=== PATIENT | male | born 1985 | race Caucasian/White ===

== ENCOUNTER 2019-11-05 21:42 | Emergency (ER) | payer OTHER ==
[~2019-11-05] VITALS: Ht 182.9 cm; Wt 99.8 kg
[~2019-11-05 21:42] MED LIST: AMOX1XR PO; Acular3 ML RIGHTEYE; CYCL10 PO; DOCU100 PO; ERYT.5TO RIGHTEYE; HYDACE10B PO; HYDACE5 PO; IBUP800 PO; LIDO2L TOP; NAPR500; NAPR500 PO; NAPR550 PO; NITR2TO30 TOP; OMEP20ER PO; OXYACE5T PO; PRED20 PO; RXCYCL10 PO; RXNAPNA550 PO; SUCR1 PO
[2019-11-05 22:16] LABS: BASOPHILS ABSOLUTE AUTO 0.04 K/mm3 (0.00-0.23); BASOPHILS PERCENT AUTO 0 % (0-2); EOSINOPHILS PERCENT AUTO 0 % (0-6); Hematocrit 50.4 % (37.0-53.0); Hemoglobin 17.6 g/dL (13.5-17.5); IMMATURE GRAN ABSOLUTE AUTO 0.07 K/mm3 (0.00-0.10); IMMATURE GRAN PERCENT AUTO 0 % (0-1); LYMPHOCYTES ABSOLUTE AUTO 0.83 K/mm3 (0.84-5.20); LYMPHOCYTES PERCENT AUTO 4 % (21-46); MONOCYTES ABSOLUTE AUTO 0.38 K/mm3 (0.16-1.47); MONOCYTES PERCENT AUTO 2 % (4-13); Mean Corpuscular HGB 30.8 pg (26.0-34.0); Mean Corpuscular HGB Conc 34.9 g/dL (31.5-36.5); Mean Corpuscular Volume 88 fL (80-100); Mean Platelet Volume 11.4 fL (9.1-12.4); NEUTROPHILS ABSOLUTE AUTO 19.64 K/mm3 (1.96-9.15); NEUTROPHILS PERCENT AUTO 94 % (41-73); Platelet Count 238 K/mm3 (150-400); RDW Coefficient Variation 12.3 % (11.7-14.2); RDW Standard Deviation 40.1 fL (35.1-46.3); Red Blood Cell Count 5.71 M/mm3 (4.30-5.90); White Blood Cell Count 20.96 K/mm3 (4.00-11.30)
[2019-11-05 22:36] LABS: Alanine Aminotransfer (ALT/SGP 37 U/L (12-78); Albumin, Blood 4.3 g/dL (3.4-5.0); Albumin/Globulin Ratio 1.1 (0.8-1.8); Alk Phos 71 U/L (50-136); Anion Gap 10 mmol/L (6-16); Aspartate Aminotrans (AST/SGOT 25 U/L (12-37); Bilirubin, Total 0.7 mg/dL (0.1-1.0); Blood Urea Nitrogen 14 mg/dL (8-24); Bun/Creatinine Ratio 18.3 (12.0-20.0); CO2, Blood 21 mmol/L (21-32); Calcium, Blood 9.2 mg/dL (8.5-10.1); Chloride, Blood 109 mmol/L (98-108); Creatinine, Blood 0.77 mg/dL (0.60-1.20); Globulin, Blood 3.8 g/dL (2.2-4.0); Glomerular Filtration Rate >60 (60-); Glucose, Blood 139 mg/dL (70-99); Potassium, Blood 4.1 mmol/L (3.5-5.5); Sodium, Blood 140 mmol/L (136-145); Total Protein, Blood 8.1 g/dL (6.4-8.2)
[2019-11-06 01:41] LABS: Source, Urine Clean Catch
[2019-11-06 01:44] LABS: Appearance, Urine Clear (Clear); Bilirubin, Urine Neg (Neg); Blood, Urine 2+ (Neg); Color, Urine Amber (P-Yellow); Glucose Qualitative, Urine 1+ (Neg); Ketones, Urine 2+ (Neg); Leukocyte Esterase, Urine Neg (Neg); Nitrite, Urine Neg (Neg); Protein, Urine 2+ (Neg); Specific Gravity, Urine 1.025 (1.003-1.022); Urobilinogen, Urine NORM (Normal)
[2019-11-06 01:49] LABS: Squamous Epithelial Cells Rare /hpf (Few); White Blood Cells, Urine 0-2 /hpf (0-5)
[2019-11-06 01:50] LABS: Bacteria Mod /hpf; Mucus Heavy (0-Heavy)
[2019-11-06] MEDS ORDERED: Zofran4 MG PO (01:57)
== END 2019-11-06 03:01 | disposition home or self-care (01) ==
LOC: ER 21:42
PROVIDERS: Emergency Medicine
DX: N39.0 Urinary tract infection, site not specified (principal)
CPT/HCPCS: 36415; 74176; 80053; 81001; 83690; 85025; 87086; 96361; 96374; 96375; 99285-25; J2405; J3010; J7030

== ENCOUNTER 2022-12-02 16:17 | Emergency (ER) | payer OTHER ==
[~2022-12-02] VITALS: Ht 182.9 cm; Wt 101.2 kg
[~2022-12-02 16:17] MED LIST changes: +Zofran4 MG PO
[2022-12-02 17:11] LABS: BASOPHILS ABSOLUTE AUTO 0.06 K/mm3 (0.00-0.23); BASOPHILS PERCENT AUTO 1 % (0-2); EOSINOPHILS ABSOLUTE AUTO 0.07 K/mm3 (0.00-0.68); EOSINOPHILS PERCENT AUTO 1 % (0-6); Hematocrit 43.8 % (37.0-53.0); Hemoglobin 15.9 g/dL (13.5-17.5); IMMATURE GRAN ABSOLUTE AUTO 0.02 K/mm3 (0.00-0.10); IMMATURE GRAN PERCENT AUTO 0 % (0-1); LYMPHOCYTES ABSOLUTE AUTO 2.67 K/mm3 (0.84-5.20); LYMPHOCYTES PERCENT AUTO 31 % (21-46); MONOCYTES ABSOLUTE AUTO 0.72 K/mm3 (0.16-1.47); MONOCYTES PERCENT AUTO 8 % (4-13); Mean Corpuscular HGB 31.9 pg (26.0-34.0); Mean Corpuscular HGB Conc 36.3 g/dL (31.5-36.5); Mean Corpuscular Volume 88 fL (80-100); Mean Platelet Volume 10.6 fL (9.1-12.4); NEUTROPHILS ABSOLUTE AUTO 5.02 K/mm3 (1.96-9.15); NEUTROPHILS PERCENT AUTO 59 % (41-73); Platelet Count 231 K/mm3 (150-400); RDW Coefficient Variation 12.2 % (11.7-14.2); RDW Standard Deviation 39.2 fL (35.1-46.3); Red Blood Cell Count 4.98 M/mm3 (4.30-5.90); White Blood Cell Count 8.56 K/mm3 (4.00-11.30)
[2022-12-02 17:38] LABS: Albumin, Blood 4.3 g/dL (3.4-5.0); Albumin/Globulin Ratio 1.3 (0.8-1.8); Bilirubin, Total 0.4 mg/dL (0.1-1.0); Bun/Creatinine Ratio 14.2 (12.0-20.0); Calcium, Blood 8.7 mg/dL (8.5-10.1); Creatinine, Blood 0.85 mg/dL (0.60-1.20); Globulin, Blood 3.3 g/dL (2.2-4.0); Potassium, Blood 3.6 mmol/L (3.5-5.5); Total Protein, Blood 7.6 g/dL (6.4-8.2)
[2022-12-02] MEDS ORDERED: LOSA50 PO (19:01)
[2022-12-02] MEDS ORDERED: AMLO10 PO (19:01)
[2022-12-02] MEDS ORDERED: ROSU5 PO (19:02)
[2022-12-02] MEDS ORDERED: CLOP75 PO (19:02)
[2022-12-02 19:45] VITALS: BP 111/66
== END 2022-12-02 20:58 | disposition home or self-care (01) ==
LOC: ER 16:17
PROVIDERS: Physician Assistant
DX: G93.9 Disorder of brain, unspecified (principal); R94.39 Abnormal result of other cardiovascular function study; R09.89 Other specified symptoms and signs involving the circulatory and respiratory systems; F17.200 Nicotine dependence, unspecified, uncomplicated; Z79.02 Long term (current) use of antithrombotics/antiplatelets
CPT/HCPCS: 71046; 80053; 84484; 85025; 85379; 93005; 93010; 99284-25

== ENCOUNTER 2022-12-20 05:32 | Day surgery (SDC) | payer OTHER ==
[~2022-12-20] VITALS: Ht 177.8 cm; Wt 100.0 kg
[~2022-12-20 05:32] MED LIST changes: +AMLO10 PO; +CLOP75 PO; +LOSA50 PO; +ROSU5 PO
[2022-12-20] MEDS ORDERED: ASPI325 PO (06:22)
[2022-12-20 06:45] VITALS: BP 147/74
[2022-12-20 07:00] VITALS: BP 161/94
[2022-12-20 07:12] VITALS: BP 149/75
[2022-12-20 07:15] VITALS: BP 134/77
[2022-12-20 07:21] VITALS: BP 138/82
[2022-12-20 07:27] VITALS: BP 114/97
== END 2022-12-20 22:39 | disposition home or self-care (01) ==
LOC: MHTC 05:32
DX: I47.20 Ventricular tachycardia, unspecified (principal); I10 Essential (primary) hypertension; Z87.891 Personal history of nicotine dependence; I49.5 Sick sinus syndrome; E78.5 Hyperlipidemia, unspecified; E66.9 Obesity, unspecified; Z68.31 Body mass index [BMI] 31.0-31.9, adult
CPT/HCPCS: 93312; 93325; A9270; J2001; J2250; J2704; J7030

== ENCOUNTER 2023-03-09 08:57 | Day surgery (SDC) | payer OTHER ==
[~2023-03-09 08:57] MED LIST changes: +ASPI325 PO
[2023-03-09 09:22] VITALS: BP 120/72
--- NOTE | 2023-03-09 10:21 | NUR ---
PT TOLERATED LOOP IMPLANT WELL. LOOP IMPLANT SITE SOFT NON-TENDER WITH NO HEMATOMA, NO BLEEDING AND INTACT DRESSING/DEONNA PATCH. LOOP IMPLANT SITE WAS CLOSED WITH SUTURES.
[2023-03-09 10:25] VITALS: BP 123/79
--- NOTE | 2023-03-09 10:32 | NUR ---
PT AMBULATED OUT.
== END 2023-03-09 22:49 | disposition home or self-care (01) ==
LOC: MHTC 08:57
DX: R55 Syncope and collapse (principal); I10 Essential (primary) hypertension; E78.5 Hyperlipidemia, unspecified; K21.9 Gastro-esophageal reflux disease without esophagitis; G56.00 Carpal tunnel syndrome, unspecified upper limb; E66.9 Obesity, unspecified; Z68.31 Body mass index [BMI] 31.0-31.9, adult; Z87.891 Personal history of nicotine dependence
CPT/HCPCS: 33285; C1764; J0690; J7050

== ENCOUNTER 2023-05-03 06:26 | Day surgery (SDC) | payer OTHER ==
[~2023-05-03] VITALS: Ht 182.9 cm; Wt 105.0 kg
[2023-05-03] VITALS (12 sets, daily range): BP systolic 115–149; BP diastolic 56–107
--- NOTE | 2023-05-03 10:14 | NUR ---
PT RETURNED TO RECOVERY ROOM IN RECLINER. LACW SITE STABLE WITH PRESSURE DRESSING IN PLACE WELL RIGHT ARM SLING AND ICE BAG OVER DPPM SITE. PT'S FAMILY IN ROOM. CALL LIGHT IN REACH. PT EATING BREAKFAST. PT DENIES CHEST PAIN. PT HAS SORENESS IN TOPS OF BILAT SHOULDERS FROM LAYING ON TABLE.
--- NOTE | 2023-05-03 10:49 | NUR ---
NO CHANGES TO LACW SITE.
--- NOTE | 2023-05-03 12:27 | NUR ---
NO CHANGES TO LACW SITE.
--- NOTE | 2023-05-03 13:43 | NUR ---
NO CHANGES TO LACW SITE.
--- NOTE | 2023-05-03 16:41 | NUR ---
DISCHARGE INSTRUCTION REVIEWED ALL QUESTIONS ANSWERED. PRESSURE DRESSING REMOVED FROM LACW DPPM SITE. DPPM SITE SOFT WITH NO HEMATOMA, NO BLEEDING AND INTACT DRESSING. 20 G IV DISCONTINUED FROM LEFT AC WITH INTACT CANNULA. PT ESCORTED OUT VIA WHEELCHAIR ESCORT.
== END 2023-05-03 16:30 | disposition home or self-care (01) ==
LOC: MHTC 06:26
DX: I49.5 Sick sinus syndrome (principal); R55 Syncope and collapse; I10 Essential (primary) hypertension; E78.5 Hyperlipidemia, unspecified; E66.9 Obesity, unspecified; I45.5 Other specified heart block; I47.29 Other ventricular tachycardia; K21.9 Gastro-esophageal reflux disease without esophagitis; Z79.899 Other long term (current) drug therapy; G56.00 Carpal tunnel syndrome, unspecified upper limb; Z87.891 Personal history of nicotine dependence; Z68.31 Body mass index [BMI] 31.0-31.9, adult
CPT/HCPCS: 33208; 71046; 76937; 99152; 99153; C1785; C1894; C1898; J0690; J1644; J2250; J3010; J7030; J7040

== ENCOUNTER 2024-03-15 11:30 | Emergency (ER) | payer OTHER ==
[~2024-03-15] VITALS: Ht 182.9 cm; Wt 108.9 kg
[2024-03-15 11:32] VITALS: BP 151/102
[2024-03-15] MEDS ORDERED: CLIN300 PO (11:35)
== END 2024-03-15 11:36 | disposition home or self-care (01) ==
LOC: ER 11:30
DX: K04.7 Periapical abscess without sinus (principal); K21.9 Gastro-esophageal reflux disease without esophagitis; I10 Essential (primary) hypertension; E78.5 Hyperlipidemia, unspecified; F17.210 Nicotine dependence, cigarettes, uncomplicated; Z79.02 Long term (current) use of antithrombotics/antiplatelets; Z79.82 Long term (current) use of aspirin; Z79.899 Other long term (current) drug therapy
CPT/HCPCS: 99282

== ENCOUNTER → 2024-03-17 | Outpatient (CLI) | payer OTHER ==
[~2024-03-17] MED LIST changes: +Amoxicillin500 MG PO; +CLIN300 PO; +CO Q10100 MG PO; +MAG GLYCINATE100 MG PO; -ROSU5 PO; +ROSUVASTATIN CA20 MG PO
[2024-03-17 10:27] LABS: BASOPHILS ABSOLUTE AUTO 0.02 K/mm3 (0.00-0.23); BASOPHILS PERCENT AUTO 0 % (0-2); EOSINOPHILS PERCENT AUTO 0 % (0-6); Hemoglobin 14.3 g/dL (13.5-17.5); IMMATURE GRAN ABSOLUTE AUTO 0.07 K/mm3 (0.00-0.10); IMMATURE GRAN PERCENT AUTO 0 % (0-1); LYMPHOCYTES ABSOLUTE AUTO 2.56 K/mm3 (0.84-5.20); LYMPHOCYTES PERCENT AUTO 14 % (21-46); MONOCYTES ABSOLUTE AUTO 1.43 K/mm3 (0.16-1.47); MONOCYTES PERCENT AUTO 8 % (4-13); Mean Corpuscular HGB 31.7 pg (26.0-34.0); Mean Corpuscular HGB Conc 35.8 g/dL (31.5-36.5); Mean Corpuscular Volume 89 fL (80-100); Mean Platelet Volume 11.1 fL (9.1-12.4); NEUTROPHILS ABSOLUTE AUTO 14.58 K/mm3 (1.96-9.15); NEUTROPHILS PERCENT AUTO 78 % (41-73); Platelet Count 241 K/mm3 (150-400); RDW Coefficient Variation 12.2 % (11.7-14.2); RDW Standard Deviation 39.4 fL (35.1-46.3); Red Blood Cell Count 4.51 M/mm3 (4.30-5.90); White Blood Cell Count 18.66 K/mm3 (4.00-11.30)
[2024-03-17 10:29] LABS: Bun/Creatinine Ratio 25.2 (12.0-20.0); Creatinine, Blood 1.03 mg/dL (0.60-1.20); Potassium, Blood 3.9 mmol/L (3.5-5.5)
== END | disposition home or self-care (01) ==
LOC: LAB 10:22 → LAB SHORT 10:22
PROVIDERS: Physician Assistant
DX: K04.7 Periapical abscess without sinus (principal)
CPT/HCPCS: 80048; 85025

== ENCOUNTER → 2024-03-18 | Outpatient (CLI) | payer OTHER ==
[2024-03-18 11:52] LABS: BASOPHILS ABSOLUTE AUTO 0.02 K/mm3 (0.00-0.23); BASOPHILS PERCENT AUTO 0 % (0-2); EOSINOPHILS ABSOLUTE AUTO 0.01 K/mm3 (0.00-0.68); EOSINOPHILS PERCENT AUTO 0 % (0-6); Hematocrit 38.8 % (37.0-53.0); Hemoglobin 13.6 g/dL (13.5-17.5); IMMATURE GRAN ABSOLUTE AUTO 0.07 K/mm3 (0.00-0.10); IMMATURE GRAN PERCENT AUTO 0 % (0-1); LYMPHOCYTES ABSOLUTE AUTO 3.67 K/mm3 (0.84-5.20); LYMPHOCYTES PERCENT AUTO 21 % (21-46); MONOCYTES ABSOLUTE AUTO 1.16 K/mm3 (0.16-1.47); MONOCYTES PERCENT AUTO 7 % (4-13); Mean Corpuscular HGB 31.3 pg (26.0-34.0); Mean Corpuscular HGB Conc 35.1 g/dL (31.5-36.5); Mean Corpuscular Volume 89 fL (80-100); Mean Platelet Volume 10.8 fL (9.1-12.4); NEUTROPHILS ABSOLUTE AUTO 12.57 K/mm3 (1.96-9.15); NEUTROPHILS PERCENT AUTO 72 % (41-73); Platelet Count 265 K/mm3 (150-400); RDW Coefficient Variation 12.1 % (11.7-14.2); RDW Standard Deviation 39.5 fL (35.1-46.3); Red Blood Cell Count 4.34 M/mm3 (4.30-5.90)
[2024-03-18 11:56] LABS: Bun/Creatinine Ratio 25.4 (12.0-20.0); Calcium, Blood 8.6 mg/dL (8.5-10.1); Creatinine, Blood 1.14 mg/dL (0.60-1.20); Potassium, Blood 3.5 mmol/L (3.5-5.5)
== END ==
LOC: LAB 11:48 → LAB SHORT 11:48
PROVIDERS: Physician Assistant
DX: K04.7 Periapical abscess without sinus (principal)
CPT/HCPCS: 80048; 85025

== ENCOUNTER 2024-03-20 09:16 | Inpatient (IN) | payer OTHER ==
[~2024-03-20] VITALS: Ht 182.9 cm; Wt 98.9 kg
[~2024-03-20 09:16] MED LIST changes: -Amoxicillin500 MG PO; -CO Q10100 MG PO; -MAG GLYCINATE100 MG PO
[2024-03-20 10:28] LABS: BASOPHILS ABSOLUTE AUTO 0.02 K/mm3 (0.00-0.23); BASOPHILS PERCENT AUTO 0 % (0-2); EOSINOPHILS ABSOLUTE AUTO 0.03 K/mm3 (0.00-0.68); EOSINOPHILS PERCENT AUTO 0 % (0-6); Hematocrit 46.1 % (37.0-53.0); Hemoglobin 16.3 g/dL (13.5-17.5); IMMATURE GRAN ABSOLUTE AUTO 0.08 K/mm3 (0.00-0.10); IMMATURE GRAN PERCENT AUTO 1 % (0-1); LYMPHOCYTES PERCENT AUTO 20 % (21-46); MONOCYTES ABSOLUTE AUTO 1.14 K/mm3 (0.16-1.47); MONOCYTES PERCENT AUTO 7 % (4-13); Mean Corpuscular HGB 31.5 pg (26.0-34.0); Mean Corpuscular HGB Conc 35.4 g/dL (31.5-36.5); Mean Corpuscular Volume 89 fL (80-100); Mean Platelet Volume 10.6 fL (9.1-12.4); NEUTROPHILS ABSOLUTE AUTO 11.47 K/mm3 (1.96-9.15); NEUTROPHILS PERCENT AUTO 72 % (41-73); Platelet Count 295 K/mm3 (150-400); RDW Coefficient Variation 11.9 % (11.7-14.2); RDW Standard Deviation 38.7 fL (35.1-46.3); Red Blood Cell Count 5.17 M/mm3 (4.30-5.90); White Blood Cell Count 15.84 K/mm3 (4.00-11.30)
[2024-03-20] MEDS ORDERED: Morphine Sulfate 4 MG/1 ML Injection IV ONE ×2 (10:30→12:40)
[2024-03-20] MEDS ORDERED: Ondansetron HCl 2 MG / ML 2ML Vial IV ONE (10:30)
[2024-03-20] MEDS ORDERED: Piperacillin/Tazobactam Sod 3.375 GM in NS 100 ML IV ONE (10:35)
[2024-03-20 10:40] LABS: Albumin, Blood 3.9 g/dL (3.4-5.0); Bilirubin, Total 0.7 mg/dL (0.1-1.0); Calcium, Blood 9.4 mg/dL (8.5-10.1); Creatinine, Blood 0.89 mg/dL (0.60-1.20); Globulin, Blood 3.8 g/dL (2.2-4.0); Potassium, Blood 3.7 mmol/L (3.5-5.5); Total Protein, Blood 7.7 g/dL (6.4-8.2)
[2024-03-20] MEDS ORDERED: NS 1,000 ML IV SCH (10:40)
[2024-03-20] MEDS ORDERED: FLU VACC TS2024-25(6MOS UP)/PF 45 MCG/0.5 ML SYRINGE IM SCH (13:05)
[2024-03-20] MEDS ORDERED: Morphine Sulfate 4 MG/1 ML Injection IV PRN (13:05)
[2024-03-20] MEDS ORDERED: FentaNYL Citrate 50 MCG/ML 2 ML Injection IV ONE (13:10)
[2024-03-20] MEDS ORDERED: Dexamethasone Sod Phos 10 MG/ML 1ML VIAL IV ONE (13:20)
[2024-03-20 15:22] VITALS: BP 153/92
[2024-03-20] MEDS ORDERED: CO Q10100 MG PO (15:35)
[2024-03-20] MEDS ORDERED: NS 250 ML IV PRN (16:10)
--- NOTE | 2024-03-20 17:07 | NUR ---
ADMIT/SHIFT SUMMARY: PT ADMITTED TO FLOOR FROM ER @ 1517 VIA WHEELCHAIR. PT INDEPENDENT IN ROOM. PT STATES ABCESS DRAINED IN ER. CONTINUES TO HAVE 6/10 PAIN BUT DENIES PAIN MEDICATION AT THIS TIME. NO SKIN ISSUES. HTN NOTED. DR. NICHOLSON ARRIVED TO ROOM SHORTLY AFTER PT ARRIVAL. STATED OKAY TO HAVE ICE WATER BUT NPO OTHERWISE. CALL LIGHT IN REACH. BED IN LOWEST POSITION. IV ABX INFUSING.
[2024-03-20] MEDS ORDERED: Piperacillin/Tazobactam Sod 4.5 GM in NS 100 ML IV SCH (18:00)
[2024-03-20 19:19] VITALS: BP 147/85
--- NOTE | 2024-03-21 02:51 | NUR ---
2330 PATIENT HAS BEEN RESTING IN ROOM. HE IS VERY DIAPHORETIC, TOTAL BED LINEN CHANGE. PT WAS MEDICATED WITH FOR RT JAW PAIN WITH MORPHINE 2 MG. TAKING FLUIDS.
[2024-03-21 04:42] VITALS: BP 150/85
[2024-03-21 04:50] LABS: BASOPHILS ABSOLUTE AUTO 0.03 K/mm3 (0.00-0.23); BASOPHILS PERCENT AUTO 0 % (0-2); EOSINOPHILS PERCENT AUTO 0 % (0-6); Hematocrit 41.7 % (37.0-53.0); Hemoglobin 14.7 g/dL (13.5-17.5); IMMATURE GRAN ABSOLUTE AUTO 0.07 K/mm3 (0.00-0.10); IMMATURE GRAN PERCENT AUTO 1 % (0-1); LYMPHOCYTES ABSOLUTE AUTO 2.09 K/mm3 (0.84-5.20); LYMPHOCYTES PERCENT AUTO 14 % (21-46); MONOCYTES ABSOLUTE AUTO 0.76 K/mm3 (0.16-1.47); MONOCYTES PERCENT AUTO 5 % (4-13); Mean Corpuscular HGB 31.7 pg (26.0-34.0); Mean Corpuscular HGB Conc 35.3 g/dL (31.5-36.5); Mean Corpuscular Volume 90 fL (80-100); Mean Platelet Volume 10.3 fL (9.1-12.4); NEUTROPHILS ABSOLUTE AUTO 11.96 K/mm3 (1.96-9.15); NEUTROPHILS PERCENT AUTO 80 % (41-73); Platelet Count 273 K/mm3 (150-400); RDW Coefficient Variation 11.8 % (11.7-14.2); RDW Standard Deviation 38.7 fL (35.1-46.3); Red Blood Cell Count 4.63 M/mm3 (4.30-5.90); White Blood Cell Count 14.91 K/mm3 (4.00-11.30)
[2024-03-21 05:09] LABS: Bun/Creatinine Ratio 19.4 (12.0-20.0); Creatinine, Blood 0.93 mg/dL (0.60-1.20); Potassium, Blood 4.6 mmol/L (3.5-5.5)
--- NOTE | 2024-03-21 06:36 | NUR ---
Rn shift summary: Patient is alert and oriented. Pt has rested well. Denies need for pain med this am. IV ABX as ordered. Remains independant in room. Call light in reach.
[2024-03-21 07:55] VITALS: BP 134/84
[2024-03-21] MEDS ORDERED: Clopidogrel Bisulfate 75 MG Tab PO SCH (09:00)
[2024-03-21] MEDS ORDERED: AmLODIPine Besylate 5 MG Tab PO SCH ×2 (09:00→21:00)
[2024-03-21] MEDS ORDERED: Losartan Potassium 50 MG Tab PO SCH (09:00)
[2024-03-21] MEDS ORDERED: Heparin Sodium,Porcine 5,000 UNIT/0.5 ML SDV SC SCH (09:00)
[2024-03-21] MEDS ORDERED: Rosuvastatin Calcium 10 MG Tab PO SCH ×2 (09:00→21:00)
--- NOTE | 2024-03-21 10:35 | NUR ---
Pt. is awake in bed and welcomes my visit. Pt. is pleasant. Facilitated a short life review and in the process established a measure of rappport. Pt. displays evidence of being engaged, and aware. Pt. verbalizes a familiarity of his medical history. Consdiered matters of family , [place] , and belief. pts. crm coordinator had been in to see him earlier this AM. Prayed with Pt. Pt. verbalized gratitude for the spiritual care visit.
[2024-03-21] MEDS ORDERED: Aspirin 325 MG Tab PO SCH (11:30)
[2024-03-21] MEDS ORDERED: Amoxicillin500 MG PO (12:08)
[2024-03-21] MEDS ORDERED: MAG GLYCINATE100 MG PO (13:10)
[2024-03-21 15:53] VITALS: BP 137/84
--- NOTE | 2024-03-21 17:35 | NUR ---
SHIFT SUMMARY: PT A/O X4. PLEASANT AND COOPERATIVE WITH CARE. VSS. INDEPENDENT IN ROOM. IV ABX INFUSED W/O COMPLICATIONS. PT C/O MINIMAL PAIN THIS EVENING. STATES FROM EATING AND TALKING WITH VISITORS. TELE IN PLACE RUNNING ATRIAL PACED IN THE 50'S. CALL LIGHT IN REACH.
[2024-03-21 19:29] VITALS: BP 126/74
[2024-03-22 02:13] VITALS: BP 136/84
--- NOTE | 2024-03-22 05:07 | NUR ---
SHIFT SUMMARY PT A&Ox4 AND PLEASANT. PT MEDICATED FOR RIGHT JAW PAIN D/T ABCESS ONCE DURING THE NIGHT. NO ACUTE CHANGES. VSS. IV ABX GIVEN PER EMAR. INDEPENDENT IN ROOM. BED IN LOWEST POSITION AND CALL LIGHT IN REACH.
[2024-03-22 05:39] LABS: BASOPHILS ABSOLUTE AUTO 0.03 K/mm3 (0.00-0.23); BASOPHILS PERCENT AUTO 0 % (0-2); EOSINOPHILS ABSOLUTE AUTO 0.16 K/mm3 (0.00-0.68); EOSINOPHILS PERCENT AUTO 1 % (0-6); Hematocrit 42.4 % (37.0-53.0); Hemoglobin 14.6 g/dL (13.5-17.5); IMMATURE GRAN ABSOLUTE AUTO 0.09 K/mm3 (0.00-0.10); IMMATURE GRAN PERCENT AUTO 1 % (0-1); LYMPHOCYTES ABSOLUTE AUTO 4.61 K/mm3 (0.84-5.20); LYMPHOCYTES PERCENT AUTO 33 % (21-46); MONOCYTES ABSOLUTE AUTO 1.22 K/mm3 (0.16-1.47); MONOCYTES PERCENT AUTO 9 % (4-13); Mean Corpuscular HGB 30.9 pg (26.0-34.0); Mean Corpuscular HGB Conc 34.4 g/dL (31.5-36.5); Mean Corpuscular Volume 90 fL (80-100); Mean Platelet Volume 10.6 fL (9.1-12.4); NEUTROPHILS ABSOLUTE AUTO 7.88 K/mm3 (1.96-9.15); NEUTROPHILS PERCENT AUTO 56 % (41-73); Platelet Count 292 K/mm3 (150-400); RDW Coefficient Variation 11.9 % (11.7-14.2); RDW Standard Deviation 38.7 fL (35.1-46.3); Red Blood Cell Count 4.72 M/mm3 (4.30-5.90); White Blood Cell Count 13.99 K/mm3 (4.00-11.30)
[2024-03-22 07:23] LABS: Bun/Creatinine Ratio 16.1 (12.0-20.0); Calcium, Blood 8.8 mg/dL (8.5-10.1); Creatinine, Blood 1.18 mg/dL (0.60-1.20); Potassium, Blood 4.3 mmol/L (3.5-5.5)
[2024-03-22 07:48] VITALS: BP 123/82
--- NOTE | 2024-03-22 10:34 | NUR ---
SHIFT SUMMARY PT A&OX4 AND ANSWERS QUESTIONS APPROPRIATELY. PT CLEARED TO DISCHARGE BY DR PÉREZ. PT EDUCATION PROVIDED, PT IV REMOVED WITH NO CONCERNS VSS, NO COMPLAINTS OF CP/PRESSURE OR SOB. PT DISCHARGED HOME AND AMBULATED INDEPENDENTLY FROM THE ROOM. ALL BELONGINGS W/ PT AND OUT OF THE ROOM. NO ACUTE EVENTS.
== END 2024-03-22 10:25 | disposition home or self-care (01) | DRG 872 ==
LOC: ER 09:16 → MEDS 13:02 → ENPENDDIS 03-22 10:06 → MEDS 03-22 10:25
PROVIDERS: Emergency Medicine; ADMIT Internal Medicine
PROC: 0C960ZZ Drainage of Lower Gingiva, Open Approach (ICD-10-PCS; principal; 2024-03-20)
PROC: 3E03329 Introduction of Other Anti-infective into Peripheral Vein, Percutaneous Approach (ICD-10-PCS; 2024-03-20)
DX: A41.9 Sepsis, unspecified organism (principal); L03.211 Cellulitis of face; M27.2 Inflammatory conditions of jaws; I10 Essential (primary) hypertension; K21.9 Gastro-esophageal reflux disease without esophagitis; F41.9 Anxiety disorder, unspecified; F32.A Depression, unspecified; E78.5 Hyperlipidemia, unspecified; I49.5 Sick sinus syndrome; R59.0 Localized enlarged lymph nodes; F17.210 Nicotine dependence, cigarettes, uncomplicated; Z95.0 Presence of cardiac pacemaker; Z86.73 Personal history of transient ischemic attack (TIA), and cerebral infarction without residual deficits; Z79.82 Long term (current) use of aspirin; Z79.02 Long term (current) use of antithrombotics/antiplatelets; Z79.899 Other long term (current) drug therapy; K04.7 Periapical abscess without sinus
CPT/HCPCS: 36415; 41800; 70487; 80048; 80053; 83605; 85025; 87040; 96361-59; 96365-59; 96375-59; 96376-59; 99284-25; A9270; J1100; J2270; J2405; J2543; J3010; J7030; J7050; Q9967